=== PATIENT | female | born 1960 | race African-American/Black ===

== ENCOUNTER → 2017-02-26 | Outpatient (CLI) | payer MEDICARE, OTHER ==
[~2017-02-26] MED LIST: ACTOS PO; ALLEGRA PO; AMARYL1 MG PO; ASPIRIN PO; CALCITRIOL0.25 MCG PO; CLONIDINE PO; COUMADIN PO; FLEXERIL10 MG PO; FOLIC ACID PO; HYZAAR 100-25 T1 TAB PO; HYZAAR 50-12.51 TAB PO; LEVAQUIN PO; LIPITOR PO; LOPRESSOR PO; LORATADINE PO; LORTAB 7.51 TAB PO; LYRICA100 MG PO; NEURONTIN PO; NORVASC PO; PHENERGAN25 M1 PO; PRAVACHOL PO; PRILOSEC PO; PROTONIX PO; RENAL SOFTGEL1 MG PO; RENO CAPS SOFTGE1 MG PO; SULAR PO; TRAMADOL-ACETA1 EACH PO; VITAMIN D50000 UNIT PO; ZYLOPRIM100 MG PO
== END | disposition home or self-care (01) ==
LOC: CNUC 07:00
DX: I10 Essential (primary) hypertension (principal); I25.10 Atherosclerotic heart disease of native coronary artery without angina pectoris; E11.9 Type 2 diabetes mellitus without complications
CPT/HCPCS: 93306

== ENCOUNTER → 2017-02-28 | Outpatient (CLI) | payer MEDICARE, OTHER ==
--- NOTE | ~2017-02-28 | US78 ---
[facility] A Service of [facility] & [facility] RADIOLOGY TEXT RESULTS PATIENT: JUANY HINES LOCATION: CNIV : 62 UNIT #: [id number] AGE: [address]: Deborah Cota MD SEX: F ORDER DR: [id number] [facility] [address] [place], [place] [address] [id number] O MR#: [id number] Acc #: [id number] NAME: JUANY HINES. : 1960 SEX: F STUDY DATE/TIME: 02/28/2017 9:13 UNIT: CNIV ROOM: STUDY DESCRIPTION: US Kidney Duplex Complete Attending Physician: Daron Cota M.D. Referring Physician: Daron Cota M.D. Ordering Physician: Daron Cota M.D. Primary Care Physician: Hazel Russell M.D. MEDICAL IMAGING REPORT This report is preliminary unless electronic signature is present EXAM Bilateral renal arterial duplex HISTORY History of coronary artery disease. Hypertension. FINDINGS The abdominal aorta is patent through its visualized course with a velocity of 79 cm/sec. The right kidney is measured to be 8.3 x 3.6 cm in diameter with flow noted within its parenchyma. The renal vein is patent. The right renal artery was noted from proximal to distal and is patent throughout its course. Proximal right renal artery velocity is 440 cm/sec, mid portion 199 cm/sec, and distally 141 cm/sec for a renal aortic ratio of 5.5. Right kidney upper pole resistive index is 0.63, mid pole 0.57, and lower pole 0.35. The left kidney is measured to be 6.4 x 5.2 cm. The left renal vein appears patent. The left renal artery noted throughout its course is patent with a proximal velocity of 203 cm/sec, mid-artery 214 cm/sec, and distally 303 cm/sec. The left kidney upper pole resistive index is 0.6, mid pole 0.52, and lower pole 0.63. The left renal aortic ratio is 3.8. IMPRESSION 1. Right and left kidney size somewhat small bilateral. 2. Greater than 60% stenosis of the right renal artery based on velocity and renal aortic ratio and left renal artery appears to be 0-59% stenosis based on velocity and renal aortic ratio. 3. No evidence of significant parenchymal malperfusion based on resistive indices. 4. Patent renal vein bilateral. [facility] A Service of [facility] & [facility] RADIOLOGY TEXT RESULTS PATIENT: JUANY HINES LOCATION: COUNT INCLUDES THE [facility] #: [id number] : [birth year] UNIT #: [id number] AGE: [address]: Deborah Cota MD SEX: F ORDER DR: Dictated by... Roly Finnegan M.D. THIS IS AN ELECTRONICALLY VERIFIED REPORT Roly Finnegan M.D. at 03/06/2017 11:00 AM LASHON/jamel TD: 02/28/2017 17:39 JOB #: [id number] MEDICAL IMAGING REPORT Page 1 of 1 COPY
== END | disposition home or self-care (01) ==
LOC: CNIV 08:53
DX: I25.10 Atherosclerotic heart disease of native coronary artery without angina pectoris (principal); I10 Essential (primary) hypertension; E11.9 Type 2 diabetes mellitus without complications; E78.5 Hyperlipidemia, unspecified; I70.1 Atherosclerosis of renal artery
CPT/HCPCS: 93975

== ENCOUNTER → 2017-03-26 | Outpatient (CLI) | payer MEDICARE, OTHER ==
--- NOTE | ~2017-03-26 | ST ---
Unit #: [id number] #: [id number] Patient: JUANY HINES [id number] [address] [address] [id number] O MR#: [id number] NAME: JUANY HINES. : 1960 SEX: F STUDY DATE/TIME: 03/26/2017 UNIT: [facility] ROOM: STUDY DESCRIPTION: Attending Physician: Daron Cota M.D. Referring Physician: Daron Cota M.D. Primary Care Physician: Hazel Russell M.D. CARDIOLOGY REPORT EXAM Lexiscan Cardiolite stress test. FINDINGS Baseline EKG: Normal sinus rhythm with ventricular rate 67 beats per minute, left atrial abnormality, Q wave in septal leads, poor R-wave progression, left ventricular hypertrophy, T-wave inversion in inferolateral leads. PROCEDURE Lexiscan is a 4-minute test with Lexiscan being injected within the first minute followed by Cardiolite. EKG during the test was equivocal to baseline. No acute ischemic changes. There was noted a rare premature ventricular complex. The patient had no complaints of chest pain, palpitations, or dizziness. Had increased shortness of breath and fatigueness which resolved in recovery phase. Maximum heart rate response was 129 beats per minute with a maximum blood pressure response of 226/122 mmHg. Patient did not take her blood pressure medication this morning which included: Losartan, clonidine, metoprolol, and minoxidil. Will give in recovery phase her doses of metoprolol 100 mg p.o. to help with elevated blood pressure. Cardiolite was injected after Lexiscan within the first minute of the test. Radionuclide tests pending. Please correlate with nuclear images. Dictated by... Aby Araujo A.P.R.N. for Yvette Romero/artemio TD: 03/26/2017 11:17 JOB #: [id number] Unit #: [id number] #: [id number] Patient: JUANY HINES CARDIOLOGY REPORT Page 1 of 1 X Aby Araujo APRN CARDIOLOGY REPORT
--- NOTE | ~2017-03-26 | TH ---
Unit #: [id number] #: [id number] Patient: JUANY HINES [id number] [address] [address] [id number] O MR#: [id number] NAME: JUANY HINES. : 1960 SEX: F STUDY DATE/TIME: 03/26/2017 UNIT: [facility] ROOM: STUDY DESCRIPTION: Attending Physician: Daron Cota M.D. Referring Physician: Daron Cota M.D. Primary Care Physician: Hazel Russell M.D. CARDIOLOGY REPORT EXAM Lexiscan Cardiolite stress test, nuclear portion. PROCEDURE Using technetium 99m labeled Cardiolite, rest and stress SPECT images were obtained. Multiple SPECT images were obtained in various views including horizontal and vertical long axis and short axis views of the left ventricle. Images were obtained by gated SPECT method. The patient was administered 9.99 mCi of Cardiolite at rest. Patient was administered 29.5 mCi of Cardiolite after Lexiscan infusion was completed. On the stress images, there is a medium-sized area of moderate decreased isotope activity involving the lateral wall. The rest images show a smaller area of mild decreased isotope activity involving the lateral wall. Comparing rest and stress images, there is suspicion for a medium-sized area of stress-induced ischemia involving the lateral wall of the left ventricle. The left ventricular ejection fraction is calculated to be 38%. There is lateral wall hypokinesis seen. The left ventricular cavity is [id number] dilated both at rest and post stress. CONCLUSION 1. Suspicion for medium-sized area of stress-induced ischemia involving the lateral wall of the left ventricle. 2. The left ventricular ejection fraction is calculated to be 38%. 3. There is lateral wall hypokinesis seen. 4. The left ventricular cavity is [id number] dilated both at rest and post stress. 5. Technically extremely limited study due to significant gut uptake. Clinical correlation is requested. Dictated by.Yvette Murphy TD: 03/26/2017 11:39 JOB #: [id number] CC: Daron Cota M.D. Unit #: [id number] #: [id number] Patient: JUANY HINES CARDIOLOGY REPORT Page 1 of 1 X Mandi Heath MD <ELECTRONICALLY SIGNED> 04/27/17 1429 CARDIOLOGY REPORT
== END | disposition home or self-care (01) ==
LOC: CNUC 07:49
DX: I25.10 Atherosclerotic heart disease of native coronary artery without angina pectoris (principal); I10 Essential (primary) hypertension; E11.9 Type 2 diabetes mellitus without complications; I51.7 Cardiomegaly
CPT/HCPCS: 78452; 93017; A9500; J2785